=== PATIENT | male | born 1975 | race American Indian/Alaskan Native ===

== ENCOUNTER 2021-11-14 19:57 | Emergency (ER) | payer OTHER ==
[2021-11-15] MEDS ORDERED: traMADol 50 MG TAB PO ONE (01:07)
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
[2021-11-15 03:32] VITALS: BP 133/94
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
== END 2021-11-15 03:32 | disposition home or self-care (01) ==
LOC: ED 19:57
DX: S16.1XXA Strain of muscle, fascia and tendon at neck level, initial encounter (principal); S70.12XA Contusion of left thigh, initial encounter; V89.2XXA Person injured in unspecified motor-vehicle accident, traffic, initial encounter; Y93.89 Activity, other specified; Y92.89 Other specified places as the place of occurrence of the external cause; Y99.8 Other external cause status
CPT/HCPCS: 72040; 99283